=== PATIENT | female | born 1985 | race Caucasian/White ===

== ENCOUNTER → 2017-02-08 | Outpatient (CLI) | payer OTHER ==
[~2017-02-08] MED LIST: PRED20TA PO
[2017-02-11 01:44] LABS: CHLAMYDIA TRACH RNA*** NOT DETECTED (NOT DETECTED); GC (NEIS GONORRHOEAE)RNA** NOT DETECTED (NOT DETECTED)
== END | disposition home or self-care (01) ==
LOC: C.LABSPEC 13:51
PROVIDERS: ATTEND Physician Assistant
DX: Z11.3 Encounter for screening for infections with a predominantly sexual mode of transmission (principal)

== ENCOUNTER → 2017-02-08 | Outpatient (CLI) | payer OTHER | END | disposition home or self-care (01) | LOC: C.PAPS 15:21 | PROVIDERS: ATTEND Physician Assistant | DX: Z12.4 Encounter for screening for malignant neoplasm of cervix (principal) ==

== ENCOUNTER → 2017-04-12 | Outpatient (CLI) | payer OTHER ==
--- NOTE | 2017-04-12 09:52 | DIAGNOSTIC IMAGING REPORT ---
RIGHT KNEE 3 VIEWS CLINICAL HISTORY: Right knee pain. Patellofemoral syndrome. COMPARISON: None. DISCUSSION: No fractures are visualized. There are mild degenerative changes. There is a tiny dorsal patellar spur. There is no radiographic evidence of a significant joint effusion. IMPRESSION: Mild degenerative change. No evidence of fracture. No destructive lesions are visualized. Electronically signed by: Luther Gao M.D. 04/12/2017 9:50 AM Dictated Date/Time: 04/12/2017 9:49 AM
--- NOTE | 2017-04-12 09:53 | DIAGNOSTIC IMAGING REPORT ---
LEFT KNEE 3 VIEWS CLINICAL HISTORY: M22.2X9 Patellofemoral [id number] Arthralgia of both handsM. Knee pain. COMPARISON STUDY: None. FINDINGS: No fracture or dislocation within the left knee. No significant knee effusion. Cartilage spaces are maintained for age. Small marginal osteophytes at the patella. 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 No fractures within the left knee. Electronically signed by: Harshad Kinsey M.D. 04/12/2017 9:51 AM Dictated Date/Time: 04/12/2017 9:50 AM
--- NOTE | 2017-04-12 09:53 | DIAGNOSTIC IMAGING REPORT ---
RIGHT HAND MIN 3 VIEWS ROUTINE CLINICAL HISTORY: M22.2X9 Patellofemoral [id number] Arthralgia of both hands Right COMPARISON: None. DISCUSSION: The bones and joint spaces appear intact. There is no evidence of fracture, dislocation or bony disease. There is no evidence for soft tissue swelling. IMPRESSION: Negative study. Electronically signed by: Omar Liang M.D. 04/12/2017 9:51 AM Dictated Date/Time: 04/12/2017 9:50 AM
--- NOTE | 2017-04-12 09:53 | DIAGNOSTIC IMAGING REPORT ---
LEFT HAND MIN 3 VIEWS ROUTINE CLINICAL HISTORY: Left hand pain. Arthralgia. COMPARISON: None. DISCUSSION: The bony mineralization appears normal. No fractures or dislocations are visualized. There are no erosive or destructive changes. IMPRESSION: No evidence of fracture. No evidence of erosive disease. Electronically signed by: Luther Gao M.D. 04/12/2017 9:51 AM Dictated Date/Time: 04/12/2017 9:51 AM
[2017-04-12 10:37] LABS: HEMATOCRIT 37.5 % (37-47); MEAN CELL VOLUME 82.1 fL (80-100); MEAN CORPUSCULAR HEMOGLOBIN 27.8 pg (25-34); MEAN CORPUSCULAR HGB CONC 33.9 g/dl (32-36); MEAN PLATELET VOLUME 9.6 fL (7.4-10.4); PLATELET COUNT 304 K/uL (130-400); RED BLOOD COUNT 4.57 M/uL (4.2-5.4); WHITE BLOOD COUNT 9.38 K/uL (4.8-10.8)
[2017-04-12 11:26] LABS: RHEUMATOID FACTOR < 10.0 U/mL (0-15); TOTAL IRON BINDING CAPACITY 362 mcg/dl (250-450)
== END | disposition home or self-care (01) ==
LOC: C.RAD1850 09:27
PROVIDERS: ATTEND Internal Medicine Rheumatology
DX: M25.50 Pain in unspecified joint (principal); M25.541 Pain in joints of right hand; M25.542 Pain in joints of left hand; M22.2X9 Patellofemoral disorders, unspecified knee

== ENCOUNTER → 2018-03-07 | Outpatient (CLI) | payer OTHER | END | disposition home or self-care (01) | LOC: C.LABBC 13:34 | PROVIDERS: ATTEND Family Medicine Adult Medicine | DX: M25.541 Pain in joints of right hand (principal); M25.542 Pain in joints of left hand ==